=== PATIENT | female | born 1995 | race Hispanic/Latino ===

== ENCOUNTER 2018-11-12 19:05 | Emergency (ER) | payer SELFPAY ==
[2018-11-12] MEDS ORDERED: CYCLOBENZAPRINE 10 MG TAB ONE (20:14)
[2018-11-12] MEDS ORDERED: HYDROCODONE/APAP 5/325 MG TAB ONE (20:15)
[2018-11-12] MEDS ORDERED: KETOROLAC 30 MG/ML INJ ONE (20:15)
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
[2018-11-12 21:07] LABS: Urine Blood 1+ (NEG); Urine Glucose NEGATIVE (NEG); Urine Protein NEGATIVE (NEG); Urine Specific Gravity 1.015 (1.005-1.030)
== END 2018-11-12 21:15 | disposition home or self-care (01) ==
LOC: ER 19:05
DX: M54.5 Low back pain (principal); M54.2 Cervicalgia; V49.40XA Driver injured in collision with unspecified motor vehicles in traffic accident, initial encounter
CPT/HCPCS: 72100; 81003; 81025; 96372; 99284